=== PATIENT | male | born 1990 | race Caucasian/White ===

== ENCOUNTER 2021-11-29 05:52 | Emergency (ER) | payer OTHER, MEDICAID ==
[~2021-11-29] VITALS: Ht 170.2 cm; Wt 104.8 kg
[2021-11-29 06:00] VITALS: BP_SYST 141
--- NOTE | 2021-11-29 06:03 | NUR ---
PT IS A 31 Y.O. M [facility], [place] AMB# [id number] C/O AUDITORY HALLUCINATIONS. DENIES SI, DENIES HEARING VOICES TO HURT OTHERS. HX OF SCHIZOPHRENIA & DM. NKA. ON PSYCH MEDS, XOCHITL DOSS, VIRAOCYNDIEL. PT TAKES METFORMIN FOR DM. KS=173MQ/DL EN ROUTE. SAFE & HAZARD FREE ENVIRONMENT PROVIDED. PT IS AMBULATORY W/ STEADY GAIT. REPORT GIVEN TO NOVA PERES. PLACED IN BED5, GOWN PROVIDED. PER PT, HE CALLED HIS PSYCHIATRIST BUT DIDN'T ANSWER SO HE DECIDED TO CALL AMB TO GO TO ER.
--- NOTE | 2021-11-29 06:15 | NUR ---
PT BIBA FROM HOME C/O AUDITORY HALLUCINATIONS. PT DENIES SUICIDAL IDEATIONS. PER PT AUDITORY HALLUCINATIONS DO NOT COMMAND HARM TO SELF OR TO OTHERS. PT TAKES MEDICATIONS FOR SCHIZOPHRENIA. PER PT, CALLED PSYCHIATRIST WHEN VOICES CAUSED STRESS. NO ANSWER. PT THEN CALLED 911. PT SHOWS NO SIGNS OF ACUTE DISTRESS AT THIS TIME. PT IS COOPERATVE WITH ASSESSMENT QUESTIONS. PT RESTING CALMLY IN BED. BED LOCKED IN LOW POSITION. SIDE RAILS UP.
--- NOTE | 2021-11-29 06:20 | NUR ---
MARYAM JOHNSON at bedside examining patient.
--- NOTE | 2021-11-29 06:42 | NUR ---
PT PROVIDED URINE BY URINAL -URINE YELLOW IN COLOR AND CLEAR. PT COVID SWAB AND URINE IN LAB. PT SLEEPING IN BED RESTING CALMLY. NO SIGNS OF DISTRESS AT THIS TIME. WILL CONTINUE TO MONITOR.
[2021-11-29] MEDS ORDERED: ARIPiprazole 5 MG TAB PO ONE (06:45)
--- NOTE | 2021-11-29 07:15 | NUR ---
REPORT RECEIVED FROM NOVA PERES FOR CONTINUING CARE
[2021-11-29 07:44] LABS: BILIRUBIN,URINE NEGATIVE (NEGATIVE); CLARITY/URINE CLEAR (CLEAR); COLOR,URINE YELLOW (YELLOW); GLUCOSE,URINE NEGATIVE (NEGATIVE); KETONES,URINE 1+ (NEGATIVE); LEUKOCYTE ESTERASE ,URINE NEGATIVE (NEGATIVE); NITRITE, URINE NEGATIVE (NEGATIVE); PROTEIN URINE NEGATIVE (NEGATIVE); UROBILINOGEN,URINE 0.2 (0.2-1.0)
--- NOTE | 2021-11-29 07:44 | NUR ---
LAB AT THE BEDSIDE FOR BLOOD DRAW
[2021-11-29] MEDS ORDERED: QUEtiapine FUMARATE 100 MG TABLET PO ONE (07:45)
--- NOTE | 2021-11-29 07:54 | NUR ---
PT IS RESTING IN BED, DENIES ANY AH AT THIS TIME, DENIES SI/HI, PT IS CALM AND COOPERATIVE, AAOX4, VSS
[2021-11-29 07:56] LABS: BLOOD, URINE TRACE (NEGATIVE)
[2021-11-29 08:09] LABS: BASOPHILS # (AUTO) 0.1 K/uL (0.0-0.2); BASOPHILS % (AUTO) 0.8 % (0.0-2.0); EOSINOPHILS # (AUTO) 0.1 K/uL (0.0-0.4); HEMATOCRIT 41.1 % (36-54); HEMOGLOBIN 14.1 g/dL (14.0-18.0); LYMPHOCYTES # (AUTO) 5.1 K/uL (1.0-5.5); LYMPHOCYTES % (AUTO) 43.9 % (20.5-51.5); MEAN CORPUSCULAR HEMOGLOBIN 29 pg (27-31); MEAN CORPUSCULAR HGB CONC 34 % (32-36); MEAN CORPUSCULAR VOLUME 86 fL (79.0-98.0); MONOCYTES # (AUTO) 0.8 K/uL (0.0-1.0); MONOCYTES % (AUTO) 6.6 % (1.7-9.3); NEUTROPHILS # (AUTO) 5.5 K/uL (1.8-7.7); NEUTROPHILS % (AUTO) 47.7 % (40.0-70.0); PLATELET COUNT (AUTO) 298 K/uL (130-430); RED BLOOD CELL COUNT(AUTO) 4.79 MIL/uL (4.2-6.2); RED CELL DISTRIBUTION WIDTH 13.6 % (9.0-15.0); WHITE BLOOD COUNT (AUTO) 11.6 K/uL (4.8-10.8)
[2021-11-29 08:17] LABS: BARBITURATE, URINE NEGATIVE (NEG <=200); BENZODIAZEPINE, URINE NEGATIVE (NEG <=150); CANNABINOID, URINE NEGATIVE (NEG <=50); COCAINE, URINE NEGATIVE (NEG <=150); METHAMPHETAMINES SCREEN,URINE NEGATIVE (NEG <=500); OPIATE, URINE NEGATIVE (NEG <=100); PHENCYCLIDINE SCREEN,URINE NEGATIVE (NEG <=25); UR TRICYCLIC ANTIDEPRESSANTS POSITIVE (NEG <=300); URINE AMPHETAMINE NEGATIVE (NEG <=500); URINE METHADONE NEGATIVE (NEG <=200); URINE OXYCODONE SCREEN NEGATIVE (NEG <=100); URINE PROPOXYPHENE SCREEN NEGATIVE (NEG <=300)
[2021-11-29 08:30] LABS: ANION GAP 10 (5-15); CALCIUM 8.7 mg/dL (8.4-11.0); CHLORIDE 103 mmol/L (98-107); CREATININE 1.35 mg/dL (0.55-1.30); GLUCOSE 199 mg/dL (70-99); POTASSIUM 4.1 mmol/L (3.5-5.1); UREA NITROGEN, BLOOD 15 mg/dL (8-21)
[2021-11-29 08:42] LABS: ACETAMINOPHEN 2 ug/mL (1-30); ALANINE AMINOTRANSFERASE 40 U/L (12-78); ALBUMIN 3.3 g/dL (3.4-4.8); ASPARTATE AMINOTRANSFERASE 20 U/L (10-37); TOTAL BILIRUBIN 0.5 mg/dL (0.0-1.0)
[2021-11-29 08:58] LABS: ALCOHOL, BLOOD < 3 mg/dL (<10); GFR AFRICAN AMERICAN 79 mL/min (>90)
[2021-11-29 09:18] LABS: BACTERIA,URINE None Seen /HPF (None Seen); WBC,URINE 0-3 /HPF (0-3)
[2021-11-29 09:29] LABS: VALPROIC ACID 61 ug/mL (50-100)
[2021-11-29] MEDS ORDERED: NACL 0.9% 1,000 ML IV ONE (09:30)
--- NOTE | 2021-11-29 09:47 | NUR ---
# 20 gauge angiocath placed to RAC. Use of asceptic technique. Opsite placed over site. Blood return noted. Flushed with 10 cc of normal saline. No evidence of infiltration noted. Patient tolerated well.
--- NOTE | 2021-11-29 09:50 | NUR ---
SW FAMILY MEMBER AGUSTÍN FOR STATUS UPDATE, SHE WILL TAKE HIM HOME IF DC'D
--- NOTE | 2021-11-29 11:06 | NUR ---
PT AMBULATES TO BATHROOM WITH STEADY GAIT
--- NOTE | 2021-11-29 13:21 | NUR ---
LUNCH TRAY PROVIDED TO PT
--- NOTE | 2021-11-29 13:35 | NUR ---
DR. HORAN ON TELE PSYCH CALL WITH PT IN ROOM
[2021-11-29 14:24] VITALS: BP_SYST 132
[2021-11-29] MEDS ORDERED: QUEtiapine FUMARATE 100 MG TABLET PO SCH ×2 (21:00)
== END 2021-11-29 14:24 | disposition home or self-care (01) ==
LOC: SED 05:52
DX: F20.9 Schizophrenia, unspecified (principal); E11.9 Type 2 diabetes mellitus without complications; E86.0 Dehydration; Z79.899 Other long term (current) drug therapy; Z20.822 Contact with and (suspected) exposure to COVID-19
CPT/HCPCS: 99283; 96360; 87426; 80307; 80053; 80164; 85025; 36415; 81000; G0482; J7030; G0480; G0481

== ENCOUNTER 2022-01-09 11:04 | Emergency (ER) | payer OTHER, MEDICAID ==
[~2022-01-09] VITALS: Ht 162.6 cm; Wt 72.6 kg
[2022-01-09 11:12] VITALS: BP_SYST 143
[2022-01-09 11:50] VITALS: BP_SYST 143
== END 2022-01-09 11:53 | disposition home or self-care (01) ==
LOC: SED 11:04
DX: F20.9 Schizophrenia, unspecified (principal); E11.9 Type 2 diabetes mellitus without complications; Z79.899 Other long term (current) drug therapy
CPT/HCPCS: 99281

== ENCOUNTER 2022-01-15 17:10 | Emergency (ER) | payer OTHER, MEDICAID ==
[~2022-01-15] VITALS: Ht 170.2 cm; Wt 102.5 kg
[2022-01-15 17:49] VITALS: BP_SYST 120
--- NOTE | 2022-01-15 19:55 | NUR ---
ER Dr. Alcocer in triage examining patient.
--- NOTE | 2022-01-15 19:58 | NUR ---
Patient came in to the ER with his mother for evaluation. Patient reports moderate to severe persistent sadness. Patient states that he has been feeling this way for some time now. He is currently on Seroquel and Depakote. Patient states that he is compliant with his medications, but his mother believes that he is not taking them. Patient reports that he hears voices, but this is not new. He denies any suicidal or homicidal ideation at this time.He has an appoint with his psychiatrist scheduled for 01/25. Patient denies visual hallucinations, fever, chest pain, shortness of breath, headache, or any other medical complaints at this time.
[2022-01-15 21:25] VITALS: BP_SYST 121
--- NOTE | 2022-01-15 21:25 | NUR ---
Patient given written and verbal discharge instructions and verbalizes understanding. ER MD discussed with patient the care provided. Patient in stable condition. ID arm band removed. No Rx given. Patient educated on his medicines and to follow up with PMD/Psychiatrist. Pain Scale 0/10. Opportunity for questions provided and answered.
== END 2022-01-15 21:25 | disposition home or self-care (01) ==
LOC: SED 17:10
DX: F32.9 Major depressive disorder, single episode, unspecified (principal); E11.9 Type 2 diabetes mellitus without complications; Z79.899 Other long term (current) drug therapy
CPT/HCPCS: 99281

== ENCOUNTER 2022-01-16 05:41 | Emergency (ER) | payer OTHER, MEDICAID ==
[~2022-01-16] VITALS: Ht 180.3 cm; Wt 102.5 kg
[2022-01-16 05:44] VITALS: BP_SYST 142
--- NOTE | 2022-01-16 05:53 | NUR ---
Patient to ER bed 04 to gown for evaluation. Side rails up. Report given to JORDAN BHATT.
--- NOTE | 2022-01-16 06:05 | NUR ---
pt came in with being upset with his uncle Darryl. His uncle told him that he doesnt want him to get . ptr is alert and orinted x 4.
--- NOTE | 2022-01-16 06:50 | NUR ---
Called mother Emperatriz per ER MD's request because patient refused to talk. ER MD asked the mother or any family to come to the hospital
[2022-01-16 07:27] LABS: BASOPHILS # (AUTO) 0.1 K/uL (0.0-0.2); BASOPHILS % (AUTO) 0.8 % (0.0-2.0); EOSINOPHILS # (AUTO) 0.2 K/uL (0.0-0.4); EOSINOPHILS % (AUTO) 1.8 % (0.0-4.0); HEMATOCRIT 43.8 % (36-54); HEMOGLOBIN 14.8 g/dL (14.0-18.0); LYMPHOCYTES # (AUTO) 3.9 K/uL (1.0-5.5); LYMPHOCYTES % (AUTO) 33.3 % (20.5-51.5); MEAN CORPUSCULAR HEMOGLOBIN 29 pg (27-31); MEAN CORPUSCULAR HGB CONC 34 % (32-36); MEAN CORPUSCULAR VOLUME 86 fL (79.0-98.0); MONOCYTES # (AUTO) 0.7 K/uL (0.0-1.0); MONOCYTES % (AUTO) 6.4 % (1.7-9.3); NEUTROPHILS # (AUTO) 6.7 K/uL (1.8-7.7); NEUTROPHILS % (AUTO) 57.7 % (40.0-70.0); PLATELET COUNT (AUTO) 385 K/uL (130-430); RED BLOOD CELL COUNT(AUTO) 5.12 MIL/uL (4.2-6.2); RED CELL DISTRIBUTION WIDTH 13.9 % (9.0-15.0); WHITE BLOOD COUNT (AUTO) 11.6 K/uL (4.8-10.8)
--- NOTE | 2022-01-16 07:30 | NUR ---
ASSUMED PATIENT CARE IN BED, AAOX4 AT THIS TIME, AWAITING FOR DISPOSITION. NO ACUTE DISTRESS NOTED, PATIENT DENIES SI/ HI.
[2022-01-16 07:42] LABS: ANION GAP 7 (5-15); CALCIUM 9.1 mg/dL (8.4-11.0); CHLORIDE 104 mmol/L (98-107); CREATININE 0.88 mg/dL (0.55-1.30); GLUCOSE 135 mg/dL (70-99); UREA NITROGEN, BLOOD 12 mg/dL (8-21)
[2022-01-16 07:44] LABS: GFR AFRICAN AMERICAN 129 mL/min (>90)
[2022-01-16 07:49] LABS: ALANINE AMINOTRANSFERASE 26 U/L (12-78); ALBUMIN 3.9 g/dL (3.4-4.8); ALCOHOL, BLOOD 3 mg/dL (<10); ASPARTATE AMINOTRANSFERASE 16 U/L (10-37); TOTAL BILIRUBIN 0.4 mg/dL (0.0-1.0)
[2022-01-16 07:50] LABS: ACETAMINOPHEN < 1 ug/mL (1-30)
--- NOTE | 2022-01-16 08:28 | NUR ---
PATIENT AUNT AT BEDSIDE.
[2022-01-16 08:50] VITALS: BP_SYST 138
--- NOTE | 2022-01-16 09:17 | NUR ---
Patient given written and verbal discharge instructions and verbalizes understanding. ER MD discussed with patient the results and treatment provided. Patient in stable condition. ID arm band removed. IV catheter removed intact and dressing applied, no active bleeding. Rx of given. Patient educated on pain management and to follow up with PMD. Pain Scale 0. Opportunity for questions provided and answered. Medication side effect fact sheet provided.
== END 2022-01-16 09:15 | disposition home or self-care (01) ==
LOC: SED 05:41
DX: F29 Unspecified psychosis not due to a substance or known physiological condition (principal); R41.0 Disorientation, unspecified; F20.9 Schizophrenia, unspecified; E11.9 Type 2 diabetes mellitus without complications; Z79.899 Other long term (current) drug therapy
CPT/HCPCS: 99283; 80053; 82550; 85025; 36415; G0482; G0480; G0481

== ENCOUNTER 2022-01-30 16:44 | Emergency (ER) | payer OTHER, MEDICAID ==
[~2022-01-30] VITALS: Ht 180.3 cm; Wt 102.5 kg
[2022-01-30 16:44] VITALS: BP_SYST 141
--- NOTE | 2022-01-30 16:44 | NUR ---
Patient triaged and placed in waiting room. VSS and patient appears in no acute distress at this time. Accompanied by AUNT AND UNCLE, awaiting available bed, and MD notified of need for MSE.
--- NOTE | 2022-01-30 17:00 | NUR ---
DR FORD IN TRIAGE EXAMINING PATIENT
--- NOTE | 2022-01-30 18:22 | NUR ---
COVID SWAB SAMPLE COLLECTED
[2022-01-30 19:30] LABS: BASOPHILS # (AUTO) 0.1 K/uL (0.0-0.2); BASOPHILS % (AUTO) 0.8 % (0.0-2.0); EOSINOPHILS # (AUTO) 0.4 K/uL (0.0-0.4); EOSINOPHILS % (AUTO) 2.5 % (0.0-4.0); HEMATOCRIT 47.5 % (36-54); HEMOGLOBIN 15.6 g/dL (14.0-18.0); LYMPHOCYTES # (AUTO) 7.5 K/uL (1.0-5.5); LYMPHOCYTES % (AUTO) 45.3 % (20.5-51.5); MEAN CORPUSCULAR HEMOGLOBIN 29 pg (27-31); MEAN CORPUSCULAR HGB CONC 33 % (32-36); MEAN CORPUSCULAR VOLUME 88 fL (79.0-98.0); MONOCYTES # (AUTO) 1.3 K/uL (0.0-1.0); MONOCYTES % (AUTO) 7.5 % (1.7-9.3); NEUTROPHILS # (AUTO) 7.3 K/uL (1.8-7.7); NEUTROPHILS % (AUTO) 43.9 % (40.0-70.0); PLATELET COUNT (AUTO) 382 K/uL (130-430); RED BLOOD CELL COUNT(AUTO) 5.41 MIL/uL (4.2-6.2); RED CELL DISTRIBUTION WIDTH 13.8 % (9.0-15.0); WHITE BLOOD COUNT (AUTO) 16.6 K/uL (4.8-10.8)
[2022-01-30 19:41] LABS: ANION GAP 9 (5-15); CHLORIDE 103 mmol/L (98-107); CREATININE 0.78 mg/dL (0.55-1.30); GLUCOSE 153 mg/dL (70-99); UREA NITROGEN, BLOOD 16 mg/dL (8-21)
[2022-01-30 19:46] LABS: ALANINE AMINOTRANSFERASE 26 U/L (12-78); ALBUMIN 3.9 g/dL (3.4-4.8); ASPARTATE AMINOTRANSFERASE 19 U/L (10-37); TOTAL BILIRUBIN 0.4 mg/dL (0.0-1.0)
[2022-01-30 19:56] LABS: ACETAMINOPHEN < 1 ug/mL (1-30); ALCOHOL, BLOOD < 3 mg/dL (<10); GFR AFRICAN AMERICAN 147 mL/min (>90)
[2022-01-30] MEDS ORDERED: NITR-85 PO (20:09)
[2022-01-30] MEDS ORDERED: cefTRIAXone 1 GM in LIDOCAINE 1%, 20 ML MDV 2.1 ML IM ONE (20:15)
--- NOTE | 2022-01-30 20:50 | NUR ---
Patient Aunt given written and verbal discharge instructions and verbalizes understanding. ER MD discussed with patient the results and treatment provided. Patient in stable condition. ID arm band removed. Rx of Macrobid given. Patient educated on pain management and to follow up with PMD. Pain Scale 0/10. Opportunity for questions provided and answered. Medication side effect fact sheet provided.
[2022-01-30 20:51] VITALS: BP_SYST 132
== END 2022-01-30 20:52 | disposition home or self-care (01) ==
LOC: SED 16:44
DX: N39.0 Urinary tract infection, site not specified (principal); R44.3 Hallucinations, unspecified; E11.9 Type 2 diabetes mellitus without complications; Z79.899 Other long term (current) drug therapy; Z20.822 Contact with and (suspected) exposure to COVID-19
CPT/HCPCS: 99283; 87426; 80053; 85025; 36415; 96372; 81002; G0482; J0696; J2001; G0480; G0481

== ENCOUNTER 2022-07-23 19:12 | Emergency (ER) | payer OTHER, MEDICAID ==
[~2022-07-23] VITALS: Ht 175.3 cm; Wt 111.1 kg
[~2022-07-23 19:12] MED LIST: NITR-85 PO
[2022-07-23 19:20] VITALS: BP_SYST 122
--- NOTE | 2022-07-23 19:42 | NUR ---
Patient arrived to ED 5 for c/o "hearing voices in morning." Patient took his seroquel regularly today and was previously diagnosed with Schizophrenia. Patient speaks both Hebrew and Latvian. PMH Diabetes. Patient denies HI and SI at the moment. Family member at bedside. Patient is calm, cooperative, and able to verbalize requests. Dr. Martinez at bedside to MSE patient.
[2022-07-23] MEDS ORDERED: OLANZapine 5 MG TAB.RAPDIS PO ONE (20:45)
[2022-07-23] MEDS ORDERED: OLANZapine 5 MG TABLET ONE (20:56)
[2022-07-23 21:08] VITALS: BP_SYST 116
--- NOTE | 2022-07-23 21:09 | NUR ---
Patient given written and verbal discharge instructions and verbalizes understanding. ER MD discussed with patient the results and treatment provided. Patient in stable condition. ID arm band removed. Patient educated on pain management and to follow up with PMD. Pain Scale . Opportunity for questions provided and answered. Medication side effect fact sheet provided.
== END 2022-07-23 21:08 | disposition home or self-care (01) ==
LOC: SED 19:12
DX: R44.0 Auditory hallucinations (principal); E11.9 Type 2 diabetes mellitus without complications; Z79.899 Other long term (current) drug therapy
CPT/HCPCS: 99283